=== PATIENT | female | born 1990 | race Caucasian/White ===

== ENCOUNTER 2017-12-21 21:28 | Emergency (ER) | payer SELFPAY ==
[~2017-12-21] VITALS: Ht 154.9 cm; Wt 87.0 kg
[2017-12-22] MEDS ORDERED: ACETAMINOPHEN 500MG TABLET ONE (02:05)
[2017-12-22] MEDS ORDERED: IBUPROFEN 400MG TABLET ONE (02:11)
[2017-12-22 03:30] VITALS: BP 111/55
== END 2017-12-22 03:30 | disposition home or self-care (01) ==
LOC: ER 21:28
DX: S89.91XA Unspecified injury of right lower leg, initial encounter (principal); T74.11XA Adult physical abuse, confirmed, initial encounter; R51 Headache; Y04.2XXA Assault by strike against or bumped into by another person, initial encounter; Y93.89 Activity, other specified; Y92.89 Other specified places as the place of occurrence of the external cause; Y99.8 Other external cause status
CPT/HCPCS: 70450; 73562; 81025; 99284; Z7610

== ENCOUNTER 2020-11-04 04:39 | Emergency (ER) | payer SELFPAY ==
[~2020-11-04] VITALS: Ht 167.6 cm; Wt 100.0 kg
[2020-11-04] MEDS ORDERED: TETANUS, DIPHTHERIA, PERTUSSIS VAC/PF 0.5ML (>7YR OLD) IM ONE (05:45)
[2020-11-04] MEDS ORDERED: SODIUM CHLORIDE 0.9% 1,000 ML IV ONE (05:45)
[2020-11-04] MEDS ORDERED: KETOROLAC 15MG/ML VIAL IV ONE (05:45)
[2020-11-04] MEDS ORDERED: BACITRACIN ZINC OINT UDPKT TOP ONE (05:45)
[2020-11-04] MEDS ORDERED: LIDOCAINE HCL/EPINEPHRINE 1%-EPI 1:100,000 10 ML VIAL IJ ONE (05:45)
[2020-11-04] MEDS ORDERED: LIDOCAINE HCL/EPINEPHRINE 1%-EPI 1:100,000 20 ML VIAL INFIL NR (06:00)
[2020-11-04 06:04] LABS: CHLORIDE 110 mEq/L (98-107)
[2020-11-04 06:10] LABS: HCG SCREEN POSITIVE
[2020-11-04 06:11] LABS: ETHANOL BLOOD 204 mg/dL
[2020-11-04 06:31] LABS: BASOPHILS % 0.7 % (0.0-2.0); EOSINOPHILS % 0.2 % (0.0-5.0); HEMATOCRIT. 39.8 % (36.0-48.0); HEMOGLOBIN. 12.5 g/dL (12.0-16.0); LYMPHOCYTES % 24.1 % (20.0-50.0); MEAN CORPUSCULAR HEMOGLOBIN 26.3 pg (28.0-32.0); MEAN PLATELET VOLUME 6.8 fl (7.4-10.4); MONOCYTES % 6.3 % (2.0-8.0); NEUTROPHILS % 68.7 % (40.0-76.0); PLATELET 393 x1000/uL (130-400); RED BLOOD CELL COUNT 4.74 mill/uL (4.2-5.4); RED CELL DISTRIBUTION WIDTH 15.7 % (11.6-14.6)
[2020-11-04] MEDS ORDERED: ACETAMINOPHEN 325MG TABLET PO SCH (06:45)
[2020-11-04] MEDS ORDERED: MORPHINE SULFATE 4 MG/ML CPJ (NOT FOR IM USE) IV ONE (08:30)
[2020-11-04] MEDS ORDERED: POTASSIUM CHLORIDE 20MEQ TABLET SR PO SCH (09:15)
[2020-11-04] MEDS ORDERED: ACET-2708 MT (09:17)
[2020-11-04 10:25] VITALS: BP 138/75
== END 2020-11-05 10:29 | disposition home or self-care (01) ==
LOC: ER 04:53
DX: F10.129 Alcohol abuse with intoxication, unspecified (principal); Y90.7 Blood alcohol level of 200-239 mg/100 ml; F12.10 Cannabis abuse, uncomplicated; I10 Essential (primary) hypertension; V49.59XA Passenger injured in collision with other motor vehicles in traffic accident, initial encounter; Y93.89 Activity, other specified; Y92.89 Other specified places as the place of occurrence of the external cause; Y99.8 Other external cause status
CPT/HCPCS: 36415; 70450; 71045; 72125; 73030; 73060; 73080; 73090; 73130; 73560; 76830; 76856; 80053; 80320; 84702; 84703; 85025; 90471; 90715; 93005; 96374; 99285; J2270; J3490; J7030; Z7610; G0480